=== PATIENT | female | born 1995 | race Caucasian/White ===

== ENCOUNTER 2021-08-02 18:18 | Day surgery (SDC) | payer OTHER ==
[2021-08-02 18:55] VITALS: BMI 25.4
[2021-08-02] MEDS ORDERED: hydrALAZINE 20 MG/ML VIAL SLOW IVP PRN (19:59)
[2021-08-02 20:05] LABS: Bilirubin Neg (Negative); Blood, Urine 10 (Negative); Clarity Clear (Clear); Glucose, Urine (Dipstick) Normal (Negative); Ketone, Urine Negative (Negative); Leukocyte Negative (Negative); Nitrite Negative (Negative); Protein, Urine (Dipstick) 15 mg/dl (Neg-Trace); Specific Gravity, Urine 1.015 (1.002-1.036)
[2021-08-02 20:20] LABS: Urine Culture Reflex No No
[2021-08-02 20:39] LABS: Bacteria/HPF Rare-Few HPF (None Seen); Squamous Epithelial 0-3 HPF (0-3); WBC/HPF 0-3 HPF (0-3)
== END 2021-08-02 20:40 | disposition home or self-care (01) ==
LOC: CSHLD/OP 18:18
PROVIDERS: ATTEND Obstetrics & Gynecology
DX: O99.891 Other specified diseases and conditions complicating pregnancy (principal); N89.8 Other specified noninflammatory disorders of vagina; Z3A.33 33 weeks gestation of pregnancy
CPT/HCPCS: 81001; 87480; 87510; 87660

== ENCOUNTER 2021-08-11 15:20 | Observation (INO) | payer OTHER ==
[2021-08-11 15:48] VITALS: BMI 26.1
[2021-08-11] MEDS ORDERED: hydrALAZINE 20 MG/ML VIAL SLOW IVP PRN (16:29)
[2021-08-11] MEDS ORDERED: Lactated Ringer's 1,000 ML IV SCH (16:30)
[2021-08-11] MEDS ORDERED: Betamet Acet/Betamet Na Ph 30 MG/5 ML VIAL ONE (16:30)
[2021-08-11] MEDS: Betamet Acet/Betamet Na Ph 30 MG/5 ML VIAL IM SCH (16:39)
[2021-08-11] MEDS ORDERED: Ondansetron PF 4 MG/2 ML Vial IVP SCH (17:00)
[2021-08-11] MEDS ORDERED: Morphine 10 MG/ML VIAL SLOW IVP SCH (17:00)
[2021-08-11] MEDS: Lactated Ringer's 1,000 ML IV SCH (17:20)
[2021-08-11] MEDS: hydrOXYzine Pamoate 25 mg Capsule PO PRN (17:25)
[2021-08-11 18:32] LABS: Bilirubin Neg (Negative); Blood, Urine Negative (Negative); Clarity Cloudy (Clear); Glucose, Urine (Dipstick) 50 mg/dL (Negative); Ketone, Urine Negative (Negative); Leukocyte Negative (Negative); Nitrite Negative (Negative); Protein, Urine (Dipstick) Negative (Neg-Trace); Urobilinogen Normal mg/dL (Less than 2)
[2021-08-11 18:38] LABS: Bacteria/HPF 2+ HPF (None Seen); RBC/HPF 0-3 HPF (0-3); Transitional Epithelial 0-3 HPF (None Seen); WBC/HPF 0-3 HPF (0-3)
[2021-08-11] MEDS ORDERED: Zolpidem Tartrate 5 MG TAB PO PRN (19:45)
[2021-08-11 20:33] LABS: Bilirubin Neg (Negative); Blood, Urine Negative (Negative); Clarity Clear (Clear); Glucose, Urine (Dipstick) 250 mg/dL (Negative); Ketone, Urine Negative (Negative); Leukocyte Negative (Negative); Nitrite Negative (Negative); Protein, Urine (Dipstick) Negative (Neg-Trace); Urobilinogen Normal mg/dL (Less than 2)
[2021-08-11 20:44] LABS: Urine Culture Reflex No No
[2021-08-11 20:45] LABS: Bacteria/HPF Rare-Few HPF (None Seen); RBC/HPF 0-3 HPF (0-3); Renal Epithelial 0-3 HPF (None Seen); Squamous Epithelial 0-3 HPF (0-3); WBC/HPF 0-3 HPF (0-3)
[2021-08-12] MEDS ORDERED: Butorphanol Tartrate 1 MG/ML VIAL ONE (02:51)
[2021-08-12] MEDS ORDERED: Butorphanol Tartrate 1 MG/ML VIAL SLOW IVP PRN (03:04)
[2021-08-12] MEDS ORDERED: ceFAZolin 2 GM/Dextrose 50 ML IVPB ONE (08:43)
[2021-08-12] MEDS: Acetaminophen 325 MG TAB PO PRN ×3 (08:51→20:44)
[2021-08-12] MEDS: ceFAZolin 2 GM/Dextrose 50 ML 2 GM in Premix Bag 1 BAG IVPB SCH ×2 (08:51→18:10)
[2021-08-12] MEDS: hydrOXYzine Pamoate 25 mg Capsule PO PRN ×2 (08:51→14:44)
[2021-08-12 10:08] LABS: SARS-CoV-2 NAA Rapid Test Not Detected (NotDetected)
[2021-08-12] MEDS: Betamet Acet/Betamet Na Ph 30 MG/5 ML VIAL IM SCH (16:35)
[2021-08-12] MEDS: Dextrose 5%-Lactated Ringers 1,000 ML IV SCH ×3 (19:16→21:16)
[2021-08-12] MEDS: Lactated Ringer's 1,000 ML IV SCH (20:07)
[2021-08-12] MEDS ORDERED: Zolpidem Tartrate 5 MG TAB PO SCH (21:00)
[2021-08-13] MEDS: ceFAZolin 2 GM/Dextrose 50 ML 2 GM in Premix Bag 1 BAG IVPB SCH ×2 (02:06→10:29)
[2021-08-13] MEDS: Dextrose 5%-Lactated Ringers 1,000 ML IV SCH (06:17)
== END 2021-08-13 12:55 | disposition home or self-care (01) ==
LOC: CSHLD/OP 15:20 → CSHLD 17:36 → UNDOADMOB 08-12 02:42 → CSHLD 08-12 02:42
PROVIDERS: ADMIT Obstetrics & Gynecology; ATTEND Obstetrics & Gynecology
DX: O47.03 False labor before 37 completed weeks of gestation, third trimester (principal); O09.213 Supervision of pregnancy with history of pre-term labor, third trimester; O99.891 Other specified diseases and conditions complicating pregnancy; N89.8 Other specified noninflammatory disorders of vagina; Z3A.34 34 weeks gestation of pregnancy; Z20.822 Contact with and (suspected) exposure to COVID-19
CPT/HCPCS: 51701; 81001; 87081; 96372; 96374; 96376; 99285; G0378; J0690; J0702; J2270; J2405; J7120; Q0177; U0002

== ENCOUNTER 2021-08-19 19:57 | Observation (INO) | payer OTHER ==
[2021-08-19 20:30] VITALS: BMI 25.0
[2021-08-19] MEDS ORDERED: Promethazine HCl 25 MG/ML VIAL IM PRN ×2 (21:02→21:03)
[2021-08-19] MEDS ORDERED: Lidocaine 1% (PF) 30 ML VIAL SC PRN (21:02)
[2021-08-19] MEDS ORDERED: Ondansetron PF 4 MG/2 ML Vial IVP PRN ×2 (21:02→21:03)
[2021-08-19] MEDS ORDERED: hydrALAZINE 20 MG/ML VIAL SLOW IVP PRN (21:02)
[2021-08-19] MEDS ORDERED: Acetaminophen 325 MG TAB PO PRN (21:03)
[2021-08-19] MEDS: NIFEdipine 10 MG CAP ONE (21:10)
[2021-08-19] MEDS ORDERED: Lactated Ringer's 1,000 ML IV SCH (21:15)
[2021-08-19] MEDS ORDERED: NS w/ Oxytocin 30 units 500 ML IV SCH (21:15)
[2021-08-19] MEDS ORDERED: NIFEdipine 10 MG CAP PO SCH (21:30)
[2021-08-19] MEDS ORDERED: NIFEdipine 10 MG CAP PO PRN (21:30)
[2021-08-19 21:44] LABS: Hemoglobin 11.1 g/dL (12.0-15.5); Mean Corpuscular HGB CONC 33.4 g/dL (32.0-36.0); Mean Corpuscular Hemoglobin 30.1 pg (27.0-33.0); Mean Platelet Volume 10.3 fl (7.4-10.4); Platelet Count 234 10x3/uL (150-450); RBC Distribution Width 12.7 % (11.5-14.5); Red Blood Cell (RBC) Count 3.69 10x6/uL (3.90-5.03); White Blood Cell (WBC) Count 12.8 10x3/uL (3.5-10.5)
[2021-08-19] MEDS: NIFEdipine 10 MG CAP PO SCH ×2 (21:44→22:17)
[2021-08-19 22:15] LABS: Hep B Surf Ag Non-Reactive S/CO (NonReactive)
[2021-08-19 22:16] LABS: Syphilis Antibody Nonreactive (Nonreactive); Syphilis Antibody Index 0.06 S/CO (<1.00 Non-Reactive)
[2021-08-19 22:26] LABS: HBSAg Index 0.17 S/CO (0-0.99)
[2021-08-20] MEDS ORDERED: Prenatal Vitamin 1 TAB PO SCH (09:00)
== END 2021-08-20 06:40 | disposition home or self-care (01) ==
LOC: CSHLD/OP 19:57 → CSHLD 22:09
PROVIDERS: ADMIT Obstetrics & Gynecology; ATTEND Obstetrics & Gynecology
DX: O47.03 False labor before 37 completed weeks of gestation, third trimester (principal); O09.213 Supervision of pregnancy with history of pre-term labor, third trimester; Z3A.35 35 weeks gestation of pregnancy
CPT/HCPCS: 36415; 85027; 86780; 86850; 86900; 86901; 87340

== ENCOUNTER 2021-08-22 20:04 | Day surgery (SDC) | payer OTHER ==
[2021-08-22 20:40] VITALS: BMI 25.8
[2021-08-22] MEDS ORDERED: hydrALAZINE 20 MG/ML VIAL SLOW IVP PRN (21:24)
== END 2021-08-22 23:15 | disposition home or self-care (01) ==
LOC: CSHLD/OP 20:04
PROVIDERS: ATTEND Obstetrics & Gynecology
DX: O47.03 False labor before 37 completed weeks of gestation, third trimester (principal); O09.213 Supervision of pregnancy with history of pre-term labor, third trimester; Z3A.35 35 weeks gestation of pregnancy

== ENCOUNTER 2021-08-30 14:36 | Inpatient (IN) | payer OTHER ==
[~2021-08-30 14:36] MED LIST: ePHEDrine Sulfate 50 MG/10 ML VIAL ONE
[2021-08-30 15:21] VITALS: BMI 26.8
[2021-08-30] MEDS ORDERED: Acetaminophen 500 MG TAB PO PRN (15:37)
[2021-08-30] MEDS ORDERED: Lidocaine 1% (PF) 30 ML VIAL SC PRN (15:37)
[2021-08-30] MEDS ORDERED: Zolpidem Tartrate 5 MG TAB PO PRN (15:37)
[2021-08-30] MEDS ORDERED: Ibuprofen 800 MG TAB PO PRN (15:37)
[2021-08-30] MEDS ORDERED: HYDROcodone/Acetaminophen 5/325 mg Tablet PO PRN ×2 (15:37)
[2021-08-30] MEDS ORDERED: Diphenoxylate HCl/Atropine Tablet PO PRN ×2 (15:37)
[2021-08-30] MEDS ORDERED: Promethazine HCl 25 MG/ML VIAL IM PRN ×2 (15:37→22:03)
[2021-08-30] MEDS ORDERED: Butorphanol Tartrate 1 MG/ML VIAL SLOW IVP PRN (15:37)
[2021-08-30] MEDS ORDERED: Misoprostol 200 MCG TAB PR PRN (15:37)
[2021-08-30] MEDS ORDERED: Ondansetron PF 4 MG/2 ML Vial IVP PRN ×2 (15:37→22:03)
[2021-08-30] MEDS ORDERED: hydrALAZINE 20 MG/ML VIAL SLOW IVP PRN (15:37)
[2021-08-30] MEDS ORDERED: NS w/ Oxytocin 30 units 500 ML IV SCH (15:45)
[2021-08-30 18:24] LABS: Hemoglobin 13.1 g/dL (12.0-15.5); Mean Corpuscular HGB CONC 34.1 g/dL (32.0-36.0); Mean Corpuscular Hemoglobin 30.4 pg (27.0-33.0); Mean Corpuscular Volume 89.1 fl (81.6-98.3); Mean Platelet Volume 11.1 fl (7.4-10.4); Platelet Count 246 10x3/uL (150-450); RBC Distribution Width 13.1 % (11.5-14.5); Red Blood Cell (RBC) Count 4.31 10x6/uL (3.90-5.03); White Blood Cell (WBC) Count 12.4 10x3/uL (3.5-10.5)
[2021-08-30 18:57] LABS: Syphilis Antibody Nonreactive (Nonreactive); Syphilis Antibody Index 0.05 S/CO (<1.00 Non-Reactive)
[2021-08-30 18:58] LABS: HIV (1/2) Antibody/Antigen Non-Reactive (NonReactive); HIV 1/2 INDEX 0.09 S/CO (<1.00); Hep B Surf Ag Non-Reactive S/CO (NonReactive)
[2021-08-30 19:12] LABS: HBSAg Index 0.15 S/CO (0-0.99)
[2021-08-30] MEDS ORDERED: Fentanyl 2 mcg/Bup 0.1% Cadd 100 ML ONE (21:17)
[2021-08-30 21:26] LABS: SARS-CoV-2 NAA Rapid Test Not Detected (NotDetected)
[2021-08-30] MEDS ORDERED: Lactated Ringer's 500 ML IV PRN (22:03)
[2021-08-30] MEDS ORDERED: Acetaminophen 325 MG TAB PO PRN (22:03)
[2021-08-30] MEDS ORDERED: Hydrocerin (Eucerin) Cream 120 gm Jar TOP PRN (22:03)
[2021-08-30] MEDS ORDERED: Naloxone HCl 0.4 mg/ml Vial IVP PRN ×2 (22:03)
[2021-08-30] MEDS ORDERED: ePHEDrine Sulfate 50 MG/10 ML VIAL SLOW IVP PRN (22:03)
[2021-08-30] MEDS ORDERED: diphenhydrAMINE 50 MG/ML VIAL IVP PRN (22:03)
[2021-08-30] MEDS ORDERED: Communication Order-Pharmacy FS SCH (22:15)
[2021-08-30] MEDS: Fentanyl 2 mcg/Bupivacaine 0.1% Cassette 100 ML EPIDURAL SCH (23:15)
[2021-08-31] MEDS: Fentanyl 2 mcg/Bupivacaine 0.1% Cassette 100 ML EPIDURAL SCH (06:20)
[2021-08-31] MEDS: Lactated Ringer's 1,000 ML IV SCH (11:08)
[2021-08-31] MEDS ORDERED: diphenhydrAMINE 25 MG CAP PO PRN (12:30)
[2021-08-31] MEDS ORDERED: NS w/ Oxytocin 30 units 500 ML IV SCH (12:30)
[2021-08-31] MEDS ORDERED: hydrALAZINE 20 MG/ML VIAL SLOW IVP PRN (12:30)
[2021-08-31] MEDS ORDERED: Bisacodyl 10 MG SUPP PR PRN (12:30)
[2021-08-31] MEDS ORDERED: Misoprostol 200 MCG TAB VAG PRN (12:30)
[2021-08-31] MEDS ORDERED: Boostrix 0.5 ML (Tdap) VIAL IM ONE (12:30)
[2021-08-31] MEDS ORDERED: Preparation H Ointment 28 GM TUBE PR PRN (12:30)
[2021-08-31] MEDS ORDERED: Milk Of Magnesia 30 ML UDCUP PO PRN (12:30)
[2021-08-31] MEDS ORDERED: Ondansetron PF 4 MG/2 ML Vial IVP PRN (12:30)
[2021-08-31] MEDS ORDERED: Benzocaine-Menthol 82.5 ML CAN TOP PRN (12:30)
[2021-08-31] MEDS ORDERED: Witch Hazel-Glycerin 1 EACH JAR TOP PRN (12:31)
[2021-08-31] MEDS: Ibuprofen 800 MG TAB PO SCH ×2 (16:37→21:01)
[2021-08-31] MEDS: Ferrous Sulfate 325 MG TAB PO SCH (18:29)
[2021-08-31] MEDS: Docusate 100 MG CAP PO SCH (21:01)
[2021-08-31] MEDS ORDERED: HYDROcodone/Acetaminophen 5/325 mg Tablet PO PRN ×2 (23:00)
[2021-09-01 04:50] LABS: Hemoglobin 11.7 g/dL (12.0-15.5); Mean Corpuscular HGB CONC 33.6 g/dL (32.0-36.0); Mean Corpuscular Hemoglobin 30.5 pg (27.0-33.0); Mean Corpuscular Volume 90.6 fl (81.6-98.3); Mean Platelet Volume 11.2 fl (7.4-10.4); Platelet Count 202 10x3/uL (150-450); RBC Distribution Width 13.1 % (11.5-14.5); Red Blood Cell (RBC) Count 3.84 10x6/uL (3.90-5.03); White Blood Cell (WBC) Count 13.1 10x3/uL (3.5-10.5)
[2021-09-01] MEDS: Ibuprofen 800 MG TAB PO SCH ×2 (05:20→13:58)
[2021-09-01] MEDS: Ferrous Sulfate 325 MG TAB PO SCH (07:29)
[2021-09-01] MEDS: Docusate 100 MG CAP PO SCH (08:08)
[2021-09-01 11:38] VITALS: BP 110/59; TEMP 98.8
== END 2021-09-01 18:35 | disposition home or self-care (01) | DRG 807 ==
LOC: CSHLD 14:36 → CSHPP 08-31 16:02
PROVIDERS: ADMIT Obstetrics & Gynecology; ATTEND Obstetrics & Gynecology
PROC: 10E0XZZ Delivery of Products of Conception, External Approach (ICD-10-PCS; principal; 2021-08-30)
DX: O75.3 Other infection during labor (principal); Z37.0 Single live birth; Z3A.39 39 weeks gestation of pregnancy; N76.0 Acute vaginitis
CPT/HCPCS: 36415; 51702; 85027; 86780; 86850; 86900; 86901; 87340; 87389; 99285; J0595; U0002

== ENCOUNTER 2022-08-09 14:47 | Emergency (ER) | payer OTHER ==
[2022-08-09 16:48] LABS: #Eosinphils 0.3 10x3/uL (0.0-0.5); #Monocytes 0.7 10x3/uL (0.0-1.1); #Neutrophils 3.9 10x3/uL (1.5-8.4); %Basophils 0.6 % (0.0-2.0); %Eosinophils 4.8 % (0.0-6.0); %Lymphocytes 27.8 % (18.0-47.0); %Neutrophils 56.5 % (40.0-75.0); Hemoglobin 14.8 g/dL (12.0-15.5); Mean Corpuscular HGB CONC 33.9 g/dL (32.0-36.0); Mean Corpuscular Hemoglobin 30.5 pg (27.0-33.0); Mean Corpuscular Volume 90.1 fl (81.6-98.3); Mean Platelet Volume 10.5 fl (7.4-10.4); Platelet Count 330 10x3/uL (150-450); Red Blood Cell (RBC) Count 4.85 10x6/uL (3.90-5.03); White Blood Cell (WBC) Count 6.9 10x3/uL (3.5-10.5)
[2022-08-09 16:53] LABS: BHCG - Serum Negative (NEGATIVE); Pregs Control Background? CLEAR/WHITE (CLR/WHITE); Pregs Control Bar Appear? YES (CONTROL BAR)
[2022-08-09 17:01] LABS: ALT (SGPT) 19 U/L (8-55); AST (SGOT) 19 U/L (5-34); Albumin 4.4 g/dL (3.5-5.0); Alkaline Phosphatase 67 U/L (40-110); Anion Gap 12 mmol/L (10-20); BUN (Urea Nitrogen) 9 mg/dL (7.0-18.7); Bilirubin, Total 0.4 mg/dL (0.2-1.2); Calc. Creatinine Clearance 0 mL/min (70-130); Calcium 9.1 mg/dL (7.8-10.44); Carbon Dioxide 27 mmol/L (22-29); Chloride 104 mmol/L (98-107); Estimated GFR 100; Globulin 3.4 g/dL (2.4-3.5); Glucose 90 mg/dL (70-105); Lipase 19 U/L (8-78); Potassium 3.6 mmol/L (3.5-5.1); Protein, Total 7.8 g/dL (6.0-8.3); Sodium 139 mmol/L (136-145)
[2022-08-09] MEDS ORDERED: Sterile Water 10 ML ONE (18:09)
[2022-08-09] MEDS ORDERED: cefTRIAXone\\ROCEPHIN 1 GM VIAL ONE (18:09)
== END 2022-08-09 18:22 | disposition home or self-care (01) ==
LOC: CSHERS 14:47
DX: N10 Acute pyelonephritis (principal)
CPT/HCPCS: 80053; 83690; 84703; 85025; 96372; 99284; J0696

== ENCOUNTER 2022-10-31 12:05 | Emergency (ER) | payer OTHER | END 2022-10-31 13:42 | disposition home or self-care (01) | LOC: CSHERS 12:05 | DX: S63.91XA Sprain of unspecified part of right wrist and hand, initial encounter (principal); G40.909 Epilepsy, unspecified, not intractable, without status epilepticus; W19.XXXA Unspecified fall, initial encounter ==